=== PATIENT | female | born 1980 | race Caucasian/White ===

== ENCOUNTER 2017-02-09 21:41 | Emergency (ER) | payer MEDICAID, OTHER ==
[~2017-02-09] VITALS: Ht 170.2 cm; Wt 71.5 kg
[~2017-02-09 21:41] MED LIST: BUSP10 PO; CITA20TA4 PO; LISI-357 PO; MINI2CAP PO; SERO100T PO
[2017-02-09 21:50] VITALS: BP 149/85; PULSE 78; RESP 20; TEMP 98.9
[2017-02-09] MEDS ORDERED: SODIUM CHLOR 0.9% 1000 ML INJ 1,000 ML IV SCH ×2 (21:51→22:45)
--- NOTE | 2017-02-09 21:56 | PD ---
HPI Chief Complaint: vomiting, anxiety Time Seen by Provider: 21:45 Travel History International Travel<30 days: No Contact w/Intl Traveler<30days: No Traveled to known affect area: No History of Present Illness HPI The patient is a 36-year-old female that complains of vomiting for 2 hours. She denies any diarrhea or fever. She does have diffuse abdominal pain which she states is from the vomiting. She has a history of anxiety and states she usually gets Ativan when this happens. She called the ambulance to come in the emergency department for the vomiting. PFSH Past Medical History Blood Disorders: No Bipolar Disorder: Yes Anxiety: Yes Depression: Yes Heart Rhythm Problems: No Cancer: No Cardiovascular Problems: Yes High Cholesterol: No Chest Pain: Yes ("WITH MY ANXIETY ATTACKS") Congestive Heart Failure: No Cerebrovascular Accident: No Diminished Hearing: No Endocrine: No GERD: Yes Genitourinary: No Headaches: Yes Hypertension: No Immune Disorder: No Musculoskeletal: Yes (CHRONIC RIGHT ARM PAIN) Neurologic: Yes (ulner nerve reconstruction) Psychiatric: Yes (bipolar) Reproductive: No Respiratory: No Migraines: No Myocardial Infarction: Yes Seizures: No Past Surgical History Other Surgery: Yes (RIGHT ARM ULNAR NERVE RECONSTRUCTION) Social History Alcohol Use: Yes (2 drinks/week) Tobacco Use: Yes (1/2ppd) Substance Use: Yes (marijuana) Allergies-Medications (Allergen,Severity, Reaction): Coded Allergies: No Known Allergies (Verified , 02/09/17) Reported Meds & Prescriptions Reported Meds & Active Scripts Active Reported Seroquel (Quetiapine Fumarate) 50 Mg Tab 50 Mg PO DAILY Zovirax (Acyclovir) 200 Mg Cap 200 Mg PO DAILY Chlorthalidone 25 Mg Tab 25 Mg PO DAILY Seroquel (Quetiapine Fumarate) 100 Mg Tab 100 Mg PO HS Klonopin (Clonazepam) 1 Mg Tab 1 Mg PO HS Citalopram (Citalopram Hydrobromide) 20 Mg Tab 20 Mg PO DAILY Buspirone (Buspirone HCl) 10 Mg Tab 20 Mg PO BID Review of Systems Except as stated in HPI: all other systems reviewed are Neg Physical Exam Narrative GENERAL: The patient is alert, anxious, oriented 3 in moderate apparent distress with her abdominal discomfort, anxiety and vomiting. SKIN: Focused skin assessment warm/dry. HEAD: Atraumatic. Normocephalic. EYES: Pupils equal and round. No scleral icterus. No injection or drainage. ENT: No nasal bleeding or discharge. Mucous membranes pink and moist. NECK: Trachea midline. No JVD. CARDIOVASCULAR: Regular rate and rhythm. No murmur appreciated. RESPIRATORY: No accessory muscle use. Clear to auscultation. Breath sounds equal bilaterally. GASTROINTESTINAL: Abdomen soft, with slight discomfort all 4 quadrants to direct palpation, nondistended. Hepatic and splenic margins not palpable. No guarding or rebound is present. MUSCULOSKELETAL: No obvious deformities. No clubbing. No cyanosis. No edema. NEUROLOGICAL: Awake and alert. No obvious cranial nerve deficits. Motor grossly within normal limits. Normal speech. PSYCHIATRIC: The patient appears anxious; insight and judgment normal. Data Data Last Documented VS Vital Signs Date Time Temp Pulse Resp B/P Pulse Ox O2 Delivery O2 Flow Rate FiO2 02/09/17 22:13 Room Air 02/09/17 21:50 98.9 78 20 149/85 Orders Complete Blood Count With Diff (02/09/17 21:51) Comprehensive Metabolic Panel (02/09/17 21:51) Urinalysis - C+S If Indicated (02/09/17 21:51) Iv Access Insert/Monitor (02/09/17 21:51) Ecg Monitoring (02/09/17 21:51) Oximetry (02/09/17 21:51) Ondansetron Inj (Zofran Inj) (02/09/17 22:00) Sodium Chlor 0.9% 1000 Ml Inj (Ns 1000 M (02/09/17 21:51) Sodium Chloride 0.9% Flush (Ns Flush) (02/09/17 22:00) Lorazepam Inj (Ativan Inj) (02/09/17 22:00) Ondansetron Inj (Zofran Inj) (02/09/17 22:30) Sodium Chlor 0.9% 1000 Ml Inj (Ns 1000 M (02/09/17 22:45) Metoclopramide Inj (Reglan Inj) (02/09/17 23:15) Lorazepam Inj (Ativan Inj) (02/09/17 23:30) Potassium Chloride (Kcl) (02/09/17 23:30) Labs Laboratory Tests Test 02/09/17 02/09/17 22:00 23:00 White Blood Count 18.1 TH/MM3 Red Blood Count 4.90 MIL/MM3 Hemoglobin 14.3 GM/DL Hematocrit 44.0 % Mean Corpuscular Volume 89.8 FL Mean Corpuscular Hemoglobin 29.1 PG Mean Corpuscular Hemoglobin 32.4 % Concent Red Cell Distribution Width 12.9 % Platelet Count 395 TH/MM3 Mean Platelet Volume 9.8 FL Neutrophils (%) (Auto) 82.5 % Lymphocytes (%) (Auto) 10.4 % Monocytes (%) (Auto) 6.4 % Eosinophils (%) (Auto) 0.4 % Basophils (%) (Auto) 0.3 % Neutrophils # (Auto) 14.8 TH/MM3 Lymphocytes # (Auto) 1.9 TH/MM3 Monocytes # (Auto) 1.2 TH/MM3 Eosinophils # (Auto) 0.1 TH/MM3 Basophils # (Auto) 0.1 TH/MM3 CBC Comment DIFF FINAL Differential Comment Sodium Level 140 MEQ/L Potassium Level 3.0 MEQ/L Chloride Level 104 MEQ/L Carbon Dioxide Level 24.5 MEQ/L Anion Gap 12 MEQ/L Blood Urea Nitrogen 28 MG/DL Creatinine 1.30 MG/DL Estimat Glomerular Filtration 46 ML/MIN Rate Random Glucose 168 MG/DL Calcium Level 10.2 MG/DL Total Bilirubin 0.6 MG/DL Aspartate Amino Transf 13 U/L (AST/SGOT) Alanine Aminotransferase 24 U/L (ALT/SGPT) Alkaline Phosphatase 61 U/L Total Protein 8.7 GM/DL Albumin 4.8 GM/DL Urine Color STRAW Urine Turbidity CLEAR Urine pH 7.0 Urine Specific Armstrong 1.013 Urine Protein NEG mg/dL Urine Glucose (UA) NEG mg/dL Urine Ketones 40 mg/dL Urine Occult Blood LARGE Urine Nitrite NEG Urine Bilirubin NEG Urine Leukocyte Esterase MOD Urine RBC 3-5 /hpf Urine WBC 3-5 /hpf Urine Squamous Epithelial 0-5 /hpf Cells Urine Bacteria NONE /hpf Microscopic Urinalysis Comment CULT NOT INDICATED MDM Medical Decision Making Medical Screen Exam Complete: Yes Emergency Medical Condition: Yes Medical Record Reviewed: Yes Interpretation(s) The CBC shows a white count of 18,100 with 82.5% neutrophils. The complete metabolic profile shows a potassium of 3.0, BUN 28, creatinine 1.3 with GFR 46 and glucose 168 and calcium 10.2 and total protein 8.7 but is otherwise unremarkable. The urine shows 40 ketones, large occult blood, moderate leukocyte Estrace but is otherwise normal and culture is not indicated. Differential Diagnosis Gastritis, anxiety, gastroenteritis, small bowel obstructionunlikely, dehydration, electrolyte disorder, renal insufficiency, anemia Narrative Course It is now 11:26 PM and the patient feels much better and wants to go home. The elevation of the BUN, 40 ketones in the urine likely the elevation of the white count is due to moderate dehydration. Impressions: Gastritis, anxiety, moderate dehydration Diagnosis Primary Impression: Gastritis Additional Impressions: Anxiety Moderate dehydration Additional Instructions: In the first 24 hours drink only clear liquids like Gatorade. You can move on to water and crackers, Jell-O, applesauce and fruit juices. Do not take any fatty foods until you are totally well. Follow-up with her primary care physician next week. Med/Other Pt SpecificInfo: Prescription(s) given Scripts Promethazine (Phenergan)25 Mg [id number] Mg PO Q6H PRN (NAUSEA OR VOMITING) #30 TAB Ref 0 Prov:Miguel Adkins MD 02/09/17 Disposition: 01 DISCHARGE HOME Condition: Stable Miguel Adkins MD Feb 09, 2017 21:56
[2017-02-09] MEDS ORDERED: LORazepam 2 MG/ML VIAL IV PUSH ONE ×2 (22:00→23:30)
[2017-02-09] MEDS ORDERED: SODIUM CHLORIDE 0.9% FLUSH 10 ML FLUSH IV FLUSH PRN (22:00)
[2017-02-09] MEDS ORDERED: ONDANSETRON HCL 4 MG/2 ML VIAL IVP ONE (22:00)
[2017-02-09 22:11] LABS: AUTOMATED NEUTROPHIL # 14.8 TH/MM3 (1.8-7.7); BASOPHIL # 0.1 TH/MM3 (0-0.2); BASOPHIL % 0.3 % (0.0-2.0); EOSINOPHIL # 0.1 TH/MM3 (0-0.4); EOSINOPHIL % 0.4 % (0.0-4.0); LYMPH % 10.4 % (9.0-44.0); LYMPHOCYTE # 1.9 TH/MM3 (1.0-4.8); MEAN CELL VOLUME 89.8 FL (80.0-100.0); MEAN CORPUSCULAR HEMOGLOBIN 29.1 PG (27.0-34.0); MEAN CORPUSCULAR HGB CONC 32.4 % (32.0-36.0); MONO % 6.4 % (0.0-8.0); NEUT % 82.5 % (16.0-70.0); PLATELET COUNT 395 TH/MM3 (150-450); RED CELL DISTRIBUTION WIDTH 12.9 % (11.6-17.2); WHITE BLOOD COUNT 18.1 TH/MM3 (4.0-11.0)
[2017-02-09 22:18] LABS: HEMO FLAGS DIFF FINAL
[2017-02-09 22:19] LABS: CHLORIDE 104 MEQ/L (98-107); SODIUM (NA) 140 MEQ/L (136-145)
[2017-02-09 22:22] LABS: ANION GAP 12 MEQ/L (5-15); BICARBONATE 24.5 MEQ/L (21.0-32.0)
[2017-02-09 22:23] LABS: BLOOD UREA NITROGEN 28 MG/DL (7-18)
[2017-02-09 22:25] LABS: ALT (GPT) 24 U/L (10-53); AST (GOT) 13 U/L (15-37)
[2017-02-09 22:26] LABS: GLOMERULAR FILTRATION RATE 46 ML/MIN (>89)
[2017-02-09 22:27] LABS: TOTAL BILIRUBIN ADULT 0.6 MG/DL (0.2-1.0)
[2017-02-09 22:28] LABS: ALKALINE PHOSPHATASE 61 U/L (45-117)
[2017-02-09] MEDS ORDERED: SERO100T PO (22:28)
[2017-02-09] MEDS ORDERED: BUSP10TA PO (22:28)
[2017-02-09] MEDS ORDERED: ACYC1CAP16 PO (22:28)
[2017-02-09] MEDS ORDERED: CLON1 PO (22:28)
[2017-02-09] MEDS ORDERED: CHLO25TA2 PO (22:28)
[2017-02-09] MEDS ORDERED: CITA20TA4 PO (22:28)
[2017-02-09] MEDS ORDERED: ONDANSETRON HCL 4 MG/2 ML VIAL IV ONE (22:30)
[2017-02-09] MEDS ORDERED: SERO50TA PO (22:36)
[2017-02-09 23:05] VITALS: BP 151/89; PULSE 69; RESP 18; O2SAT 98
[2017-02-09 23:09] LABS: BLOOD, URINE LARGE (NEG); GLUCOSE,URINE NEG (NEG); KETONE, URINE 40 mg/dL (NEG); NITRITE,URINE NEG (NEG)
[2017-02-09] MEDS ORDERED: METOCLOPRAMIDE HCL 10 MG/2 ML VIAL IVS ONE (23:15)
[2017-02-09 23:17] LABS: SQUAMOUS EPITHELIAL CELL URINE 0-5 /hpf (0-5); URINE COLOR STRAW (YELLW/STRAW)
[2017-02-09 23:18] LABS: COMMENT (UR) CULT NOT INDICATED; CULTURE IF INDICATED CULT NOT INDICATED
[2017-02-09] MEDS ORDERED: POTASSIUM CHLORIDE 20 MEQ CONTROLLED RELEASE TAB PO ONE (23:30)
[2017-02-09] MEDS ORDERED: PROM25TA10 PO (23:31)
[2017-02-10 00:06] VITALS: BP 159/89
[2017-02-11] MEDS ORDERED: PROM1SUP7 RECTAL (13:15)
== END 2017-02-10 00:05 | disposition home or self-care (01) ==
LOC: PHED 21:41
DX: K29.70 Gastritis, unspecified, without bleeding (principal); F41.9 Anxiety disorder, unspecified; E86.0 Dehydration; F17.200 Nicotine dependence, unspecified, uncomplicated
CPT/HCPCS: 80053; 81001; 85025; 96361; 96374; 96375; 96376; 99284; J2060; J2405; J2765; J7030

== ENCOUNTER 2017-02-11 11:43 | Emergency (ER) | payer MEDICAID, OTHER ==
[~2017-02-11] VITALS: Ht 170.2 cm; Wt 68.0 kg
[~2017-02-11 11:43] MED LIST changes: +ACYC1CAP16 PO; -BUSP10 PO; +BUSP10TA PO; +CHLO25TA2 PO; +CLON1 PO; -LISI-357 PO; -MINI2CAP PO; +PROM25TA10 PO; +SERO50TA PO
[2017-02-11 11:49] VITALS: BP 147/103; PULSE 75; RESP 17; TEMP 97.7; O2SAT 98
[2017-02-11] MEDS ORDERED: SODIUM CHLOR 0.9% 1000 ML INJ 1,000 ML IV SCH (12:17)
--- NOTE | 2017-02-11 12:19 | PD ---
HPI Chief Complaint: GI Complaint Time Seen by Provider: 12:17 Travel History International Travel<30 days: No Contact w/Intl Traveler<30days: No Traveled to known affect area: No History of Present Illness HPI Patient presents for nausea and vomiting since this morning. Reports frequent anxiety associated with nausea and vomiting. Reports that she responds well to Ativan and Zofran. Evaluated 2 days ago for similar symptoms, given Zofran. Patient reports inability to hold Zofran down. Denies any blood per emesis. Denies any new chest pain shortness of breath urinary or bowel symptoms. Reports good fluid intake until this morning. PFSH Past Medical History Blood Disorders: No Bipolar Disorder: Yes Anxiety: Yes Depression: Yes Heart Rhythm Problems: No Cancer: No High Cholesterol: No Chest Pain: Yes ("WITH MY ANXIETY ATTACKS") Congestive Heart Failure: No Cerebrovascular Accident: No Diminished Hearing: No Endocrine: No GERD: Yes Genitourinary: Yes (herpes) Headaches: Yes Hypertension: Yes Immune Disorder: No Musculoskeletal: Yes (CHRONIC RIGHT ARM PAIN) Neurologic: Yes (ulner nerve reconstruction) Psychiatric: Yes (bipolar) Reproductive: No Respiratory: No Migraines: No Seizures: No ?: Not LMP: 2 DAYS. : 2 Past Surgical History Other Surgery: Yes (RIGHT ARM ULNAR NERVE RECONSTRUCTION) Social History Alcohol Use: Yes (2 drinks/week) Tobacco Use: No Substance Use: Yes (marijuana) Allergies-Medications (Allergen,Severity, Reaction): Coded Allergies: No Known Allergies (Verified , 02/11/17) Reported Meds & Prescriptions Reported Meds & Active Scripts Active Phenergan (Promethazine HCl) 25 Mg Tablet 25 Mg PO Q6H PRN Reported Seroquel (Quetiapine Fumarate) 50 Mg Tab 50 Mg PO DAILY Zovirax (Acyclovir) 200 Mg Cap 200 Mg PO DAILY Chlorthalidone 25 Mg Tab 25 Mg PO DAILY Seroquel (Quetiapine Fumarate) 100 Mg Tab 100 Mg PO HS Klonopin (Clonazepam) 1 Mg Tab 1 Mg PO HS Citalopram (Citalopram Hydrobromide) 20 Mg Tab 20 Mg PO DAILY Buspirone (Buspirone HCl) 10 Mg Tab 20 Mg PO BID Review of Systems General / Constitutional: No: Fever Eyes: No: Visual changes HENT: No: Headaches Cardiovascular: No: Chest Pain or Discomfort Respiratory: No: Shortness of Breath Gastrointestinal: Positive: Nausea, Vomiting, No: Abdominal Pain Genitourinary: No: Dysuria Musculoskeletal: No: Pain Skin: No Rash Neurologic: No: Weakness Psychiatric: No: Depression Endocrine: No: Polydipsia Hematologic/Lymphatic: No: Easy Bruising Physical Exam Narrative GENERAL: Well-nourished, well-developed patient. SKIN: Focused skin assessment warm/dry. HEAD: Normocephalic. EYES: No scleral icterus. No injection or drainage. NECK: Supple, trachea midline. No JVD or lymphadenopathy. CARDIOVASCULAR: Regular rate and rhythm without murmurs, gallops, or rubs. RESPIRATORY: Breath sounds equal bilaterally. No accessory muscle use. GASTROINTESTINAL: Abdomen soft, non-tender, nondistended. MUSCULOSKELETAL: No cyanosis, or edema. BACK: Nontender without obvious deformity. No CVA tenderness. Data Data Last Documented VS Vital Signs Date Time Temp Pulse Resp B/P Pulse Ox O2 Delivery O2 Flow Rate FiO2 02/11/17 11:49 97.7 75 17 147/103 98 Orders Iv Access Insert/Monitor (02/11/17 12:17) Ecg Monitoring (02/11/17 12:17) Oximetry (02/11/17 12:17) Ondansetron Inj (Zofran Inj) (02/11/17 12:30) Pantoprazole Inj (Protonix Inj) (02/11/17 12:30) Sodium Chlor 0.9% 1000 Ml Inj (Ns 1000 M (02/11/17 12:17) Famotidine Inj (Pepcid Inj) (02/11/17 12:30) Lorazepam Inj (Ativan Inj) (02/11/17 12:30) MDM Medical Decision Making Medical Screen Exam Complete: Yes Emergency Medical Condition: Yes Differential Diagnosis Gastritis, anxiety, moderate hydration, small bowel obstruction Narrative Course Assessment and plan discussed with patient and mother at bedside. Received anti -emetic and small doses of Ativan with resolution of symptoms. Tolerated fluid challenge. Diagnosis Primary Impression: Gastritis Qualified Code: K29.50 - Chronic gastritis, presence of bleeding unspecified, unspecified gastritis type Additional Instructions: Encouraged a bland high-fiber brat diet. Encouraged fluids. Encouraged to follow-up with PCP. Encouraged to return to emergency room with any onset of new symptoms. Patient has Klonopin at home for anxiety. Med/Other Pt SpecificInfo: Prescription(s) given Scripts Promethazine Supp (Phenergan Supp)25 Mg Supp25 Mg RECTAL Q6H PRN (NAUSEA OR VOMITING) #10 SUPP Ref 0 Prov:Will Walton MD 02/11/17 Disposition: 01 DISCHARGE HOME Condition: Good Will Walton MD Feb 11, 2017 12:18
[2017-02-11] MEDS ORDERED: ONDANSETRON HCL 4 MG/2 ML VIAL IVP ONE (12:30)
[2017-02-11] MEDS ORDERED: LORazepam 2 MG/ML VIAL IM ONE (12:30)
[2017-02-11] MEDS ORDERED: FAMOTIDINE 20 MG/2 ML VIAL IV PUSH ONE (12:30)
[2017-02-11] MEDS ORDERED: PANTOPRAZOLE SODIUM 40 MG VIAL IVP ONE (12:30)
[2017-02-11] MEDS ORDERED: PROM1SUP7 RECTAL (13:15)
== END 2017-02-11 14:00 | disposition home or self-care (01) ==
LOC: PHED 11:43
DX: K29.50 Unspecified chronic gastritis without bleeding (principal); I10 Essential (primary) hypertension; K21.9 Gastro-esophageal reflux disease without esophagitis
CPT/HCPCS: 96361; 96372; 96374; 96375; 99284; C9113; J2060; J2405; J7030